=== PATIENT | female | born 1940 | race African-American/Black ===

== ENCOUNTER 2018-09-19 21:53 | Inpatient (IN) | payer MEDICARE, MEDICAID ==
[~2018-09-19] VITALS: Ht 152.4 cm; Wt 92.5 kg
[2018-09-19 23:34] LABS: BASOPHILS % 0.6 % (0.0-2.0); EOSINOPHILS % 3.3 % (0.0-5.0); HEMATOCRIT. 41.5 % (36.0-48.0); HEMOGLOBIN. 13.4 g/dL (12.0-16.0); MEAN CORPUSCULAR HEMOGLOBIN 25.6 pg (28.0-32.0); MEAN CORPUSCULAR VOLUME 79.2 fL (81.0-99.0); MEAN PLATELET VOLUME 9.1 fl (7.4-10.4); MONOCYTES % 7.1 % (2.0-8.0); PLATELET 285 x1000/uL (130-400); RED BLOOD CELL COUNT 5.24 mill/uL (4.2-5.4)
[2018-09-19 23:39] LABS: CHLORIDE 106 mEq/L (98-107)
[2018-09-20 00:05] LABS: PARTIAL THROMBOPLASTIN TIME 30.9 sec (23.4-31.0); PROTHROMBIN TIME 10.5 sec (9.6-11.0)
[2018-09-20] MEDS ORDERED: CLONIDINE 0.2MG TABLET PO ONE (00:15)
[2018-09-20] MEDS ORDERED: ASPIRIN 325MG EC TABLET PO ONE (02:30)
[2018-09-20] MEDS ORDERED: CLONIDINE 0.1MG TABLET PO ONE (02:30)
[2018-09-20] MEDS ORDERED: MAGNESIUM/ALUMINUM HYDROXIDE/SIMETHICONE 30ML UDC PO PRN (07:00)
[2018-09-20] MEDS ORDERED: DOCUSATE SODIUM 100MG CAPSULE PO PRN (07:00)
[2018-09-20] MEDS ORDERED: HYDROCODONE/ACETAMINOPHEN 10/325MG TABLET PO PRN (07:00)
[2018-09-20] MEDS ORDERED: GUAIFENESIN 200MG/10ML SUGAR FREE UDC PO PRN (07:00)
[2018-09-20] MEDS ORDERED: DIPHENHYDRAMINE 50MG/ML VIAL IV PRN (07:00)
[2018-09-20] MEDS ORDERED: ACETAMINOPHEN 325MG TABLET PO PRN (07:00)
[2018-09-20] MEDS ORDERED: ONDANSETRON HCL 4MG/2ML INJ IV PRN (07:00)
[2018-09-20] MEDS ORDERED: CLONIDINE 0.1MG TABLET PO PRN (07:00)
[2018-09-20] MEDS ORDERED: NA PHOS,M-B/NA PHOS,DI-BA ENEMA 118ML PR PRN (07:00)
[2018-09-20] MEDS ORDERED: IPRATROPIUM/ALBUTEROL 0.5-3(2.5)MG/3ML NEB INH PRN (07:00)
[2018-09-20] MEDS ORDERED: LORAZEPAM 2MG/ML CPJ IV PRN (07:00)
[2018-09-20 08:45] VITALS: BP 155/63
[2018-09-20 08:46] VITALS: BP 155/63
[2018-09-20] MEDS: ASPIRIN 81MG EC TABLET PO SCH (10:28)
[2018-09-20] MEDS: ENOXAPARIN 40MG/0.4ML SYR SUBCUT SCH (10:29)
[2018-09-20 12:00] VITALS: BP 155/70
[2018-09-20] MEDS: PANTOPRAZOLE SODIUM 40 MG/VIAL IV SCH (12:42)
[2018-09-20] MEDS: LISINOPRIL 10MG TABLET PO SCH (12:42)
[2018-09-20 16:00] VITALS: BP 124/53
[2018-09-20 17:24] LABS: CREATINE KINASE 157 IU/L (26-192)
[2018-09-20 17:25] LABS: CREATINE KINASE MB FRACTION 1.2 ng/mL (0.5-3.6)
[2018-09-20] MEDS: SODIUM CHLORIDE 0.9% INJ 3ML FLUSH IVF SCH ×2 (18:43→21:59)
[2018-09-20 20:00] VITALS: BP 147/62
[2018-09-21] VITALS: BP 123/51
[2018-09-21 04:00] VITALS: BP 127/56
[2018-09-21] MEDS: SODIUM CHLORIDE 0.9% INJ 3ML FLUSH IVF SCH (05:29)
[2018-09-21 06:33] LABS: BASOPHILS % 0.5 % (0.0-2.0); EOSINOPHILS % 4.9 % (0.0-5.0); HEMATOCRIT. 38.2 % (36.0-48.0); HEMOGLOBIN. 12.5 g/dL (12.0-16.0); LYMPHOCYTES % 30.1 % (20.0-50.0); MEAN CORPUSCULAR HEMOGLOBIN 25.8 pg (28.0-32.0); MEAN CORPUSCULAR VOLUME 78.8 fL (81.0-99.0); MEAN PLATELET VOLUME 9.2 fl (7.4-10.4); MONOCYTES % 8.5 % (2.0-8.0); PLATELET 253 x1000/uL (130-400); RED BLOOD CELL COUNT 4.85 mill/uL (4.2-5.4)
[2018-09-21 07:43] LABS: CHLORIDE 107 mEq/L (98-107)
[2018-09-21 08:00] VITALS: BP 136/68
[2018-09-21 08:05] LABS: LDL CHOLESTEROL 112 mg/dL (5-100)
[2018-09-21 08:06] LABS: CREATINE KINASE 127 IU/L (26-192); HDL CHOLESTEROL 40 mg/dL (40-59); T4 FREE 1.11 ng/dL (0.76-1.46)
[2018-09-21 08:11] LABS: CREATINE KINASE MB FRACTION 1.1 ng/mL (0.5-3.6)
[2018-09-21] MEDS: PANTOPRAZOLE SODIUM 40 MG/VIAL IV SCH (09:34)
[2018-09-21] MEDS: ASPIRIN 81MG EC TABLET PO SCH (09:34)
[2018-09-21] MEDS: ENOXAPARIN 40MG/0.4ML SYR SUBCUT SCH (09:34)
[2018-09-21] MEDS: LISINOPRIL 10MG TABLET PO SCH (09:34)
[2018-09-21 12:53] VITALS: BP 122/77
[2018-09-21] MEDS ORDERED: ENOXAPARIN 30MG/0.3ML SYR SUBCUT SCH (21:00)
== END 2018-09-21 13:30 | disposition home or self-care (01) | DRG 305 ==
LOC: ER 21:53 → 6WST 09-20 02:17 → ENRESERV 09-20 07:36
PROVIDERS: ADMIT Internal Medicine; ATTEND Internal Medicine
DX: I10 Essential (primary) hypertension (principal); R42 Dizziness and giddiness; F41.9 Anxiety disorder, unspecified; E05.90 Thyrotoxicosis, unspecified without thyrotoxic crisis or storm; E78.5 Hyperlipidemia, unspecified; K21.9 Gastro-esophageal reflux disease without esophagitis; Z88.8 Allergy status to other drugs, medicaments and biological substances; Z88.5 Allergy status to narcotic agent
CPT/HCPCS: 36415; 71045; 80061; 82550; 82553; 83036; 83880; 84439; 84443; 84484; 85379; 93005; 93306; 99285; C9113; J1650; J2060

== ENCOUNTER 2018-09-25 05:19 | Inpatient (IN) | payer MEDICARE, MEDICAID ==
[2018-09-25] VITALS (7 sets, daily range): BP systolic 108–179; BP diastolic 57–88
[~2018-09-25] VITALS: Ht 160 cm; Wt 92.5 kg
[2018-09-25 07:14] LABS: BASOPHILS % 0.3 % (0.0-2.0); CHLORIDE 105 mEq/L (98-107); EOSINOPHILS % 2.2 % (0.0-5.0); HEMATOCRIT. 42.9 % (36.0-48.0); HEMOGLOBIN. 13.6 g/dL (12.0-16.0); MEAN CORPUSCULAR HEMOGLOBIN 25.4 pg (28.0-32.0); MEAN CORPUSCULAR VOLUME 79.9 fL (81.0-99.0); MONOCYTES % 5.5 % (2.0-8.0); PLATELET 279 x1000/uL (130-400); RED BLOOD CELL COUNT 5.37 mill/uL (4.2-5.4); RED CELL DISTRIBUTION WIDTH 15.5 % (11.6-14.6)
[2018-09-25] MEDS ORDERED: NITROGLYCERIN 0.4MG TABLET SL SL ONE (07:45)
[2018-09-25] MEDS ORDERED: LORAZEPAM 2MG/ML CPJ IV PRN (09:00)
[2018-09-25] MEDS ORDERED: DOCUSATE SODIUM 100MG CAPSULE PO PRN (09:00)
[2018-09-25] MEDS ORDERED: MAGNESIUM/ALUMINUM HYDROXIDE/SIMETHICONE 30ML UDC PO PRN (09:00)
[2018-09-25] MEDS ORDERED: ACETAMINOPHEN 325MG TABLET PO PRN (09:00)
[2018-09-25] MEDS ORDERED: NA PHOS,M-B/NA PHOS,DI-BA ENEMA 118ML PR PRN (09:00)
[2018-09-25] MEDS ORDERED: DIPHENHYDRAMINE 50MG/ML VIAL IV PRN (09:00)
[2018-09-25] MEDS ORDERED: GUAIFENESIN 200MG/10ML SUGAR FREE UDC PO PRN (09:00)
[2018-09-25] MEDS ORDERED: IPRATROPIUM/ALBUTEROL 0.5-3(2.5)MG/3ML NEB INH PRN (09:00)
[2018-09-25] MEDS ORDERED: HYDROMORPHONE HCL/PF 2MG/ML CPJ IV PRN (09:00)
[2018-09-25] MEDS ORDERED: ONDANSETRON HCL 4MG/2ML INJ IV PRN (09:00)
[2018-09-25 09:15] LABS: CHLORIDE 107 mEq/L (98-107)
[2018-09-25] MEDS: ASPIRIN 81MG EC TABLET PO SCH (10:45)
[2018-09-25] MEDS ORDERED: LEVO100T9 PO (14:21)
[2018-09-25] MEDS ORDERED: DOCU-138 PO (14:24)
[2018-09-25] MEDS ORDERED: LISI40TA4 PO (14:24)
[2018-09-25] MEDS ORDERED: AMLO10TA4 PO (14:24)
[2018-09-25] MEDS: CLONIDINE 0.1MG TABLET PO PRN (15:24)
[2018-09-26] VITALS (9 sets, daily range): BP systolic 144–173; BP diastolic 60–78
[2018-09-26 06:14] LABS: BASOPHILS % 0.5 % (0.0-2.0); EOSINOPHILS % 5.1 % (0.0-5.0); HEMATOCRIT. 37.1 % (36.0-48.0); HEMOGLOBIN. 11.9 g/dL (12.0-16.0); LYMPHOCYTES % 31.6 % (20.0-50.0); MEAN CORPUSCULAR HEMOGLOBIN 25.5 pg (28.0-32.0); MEAN CORPUSCULAR VOLUME 79.4 fL (81.0-99.0); MEAN PLATELET VOLUME 9.2 fl (7.4-10.4); MONOCYTES % 8.1 % (2.0-8.0); NEUTROPHILS % 54.7 % (40.0-76.0); PLATELET 262 x1000/uL (130-400); RED BLOOD CELL COUNT 4.67 mill/uL (4.2-5.4)
[2018-09-26 06:16] LABS: CHLORIDE 106 mEq/L (98-107)
[2018-09-26 06:36] LABS: HDL CHOLESTEROL 40 mg/dL (40-59)
[2018-09-26 06:37] LABS: LDL CHOLESTEROL 108 mg/dL (5-100)
[2018-09-26] MEDS: ASPIRIN 81MG EC TABLET PO SCH (08:48)
[2018-09-26] MEDS: LISINOPRIL 40MG TABLET PO SCH (08:48)
[2018-09-26] MEDS: AMLODIPINE 10MG TABLET PO SCH (08:48)
[2018-09-26] MEDS: LEVOTHYROXINE SODIUM 100MCG TABLET PO SCH (08:48)
[2018-09-26] MEDS: ENOXAPARIN 30MG/0.3ML SYR SUBCUT SCH ×2 (08:49→21:30)
[2018-09-26] MEDS: CLONIDINE 0.1MG TABLET PO PRN (11:39)
[2018-09-26] MEDS: PANTOPRAZOLE 40MG DR TABLET PO SCH (17:36)
[2018-09-26] MEDS ORDERED: CLONIDINE 0.2MG TABLET PO PRN (21:00)
[2018-09-26] MEDS: METOPROLOL TARTRATE 25MG TABLET PO SCH (21:29)
[2018-09-27] VITALS: BP 143/63
[2018-09-27 04:00] VITALS: BP 134/70
[2018-09-27 08:00] VITALS: BP 131/80
[2018-09-27] MEDS: LEVOTHYROXINE SODIUM 100MCG TABLET PO SCH (08:35)
[2018-09-27] MEDS: LISINOPRIL 40MG TABLET PO SCH (08:35)
[2018-09-27] MEDS: PANTOPRAZOLE 40MG DR TABLET PO SCH (08:35)
[2018-09-27] MEDS: METOPROLOL TARTRATE 25MG TABLET PO SCH (08:35)
[2018-09-27] MEDS: AMLODIPINE 10MG TABLET PO SCH (08:36)
[2018-09-27] MEDS: ASPIRIN 81MG EC TABLET PO SCH (08:36)
[2018-09-27] MEDS: ENOXAPARIN 30MG/0.3ML SYR SUBCUT SCH (08:36)
== END 2018-09-27 12:38 | disposition home or self-care (01) | DRG 310 ==
LOC: ER 05:19 → 7WST 08:06 → EDBEDREQTM 08:08 → EDBEDREQ 08:08 → ENRESERV 08:23 → 7WST 09:27
PROVIDERS: ADMIT Internal Medicine; ATTEND Internal Medicine
DX: R00.2 Palpitations (principal); E03.9 Hypothyroidism, unspecified; E78.00 Pure hypercholesterolemia, unspecified; E78.5 Hyperlipidemia, unspecified; I10 Essential (primary) hypertension; F41.9 Anxiety disorder, unspecified; I25.10 Atherosclerotic heart disease of native coronary artery without angina pectoris; Z79.890 Hormone replacement therapy; Z88.5 Allergy status to narcotic agent; Z88.9 Allergy status to unspecified drugs, medicaments and biological substances; D64.9 Anemia, unspecified
CPT/HCPCS: 36415; 71045; 80048; 80061; 83880; 84439; 84443; 84484; 93005; 93970; 99285; J1650; J2060; J2405

== ENCOUNTER 2019-05-29 14:33 | Emergency (ER) | payer MEDICARE, MEDICAID ==
[~2019-05-29] VITALS: Ht 160 cm; Wt 101.0 kg
[~2019-05-29 14:33] MED LIST: AMLO10TA4 PO; DOCU-138 PO; LEVO100T9 PO; LISI40TA4 PO
[2019-05-29] MEDS ORDERED: ONDANSETRON HCL 4MG/2ML INJ IV STA (18:26)
[2019-05-29] MEDS ORDERED: KETOROLAC 30MG/ML VIAL IV STA (18:26)
[2019-05-29] MEDS ORDERED: SODIUM CHLORIDE 0.9% 1,000 ML IV ONE (18:26)
[2019-05-29 19:20] LABS: CLARITY URINE CLEAR (CLEAR); COLOR URINE YELLOW (YELLOW); KETONES URINE NEGATIVE (NEGATIVE); LEUKOCYTE ESTERASE URINE 2+ (NEGATIVE); NITRITE URINE NEGATIVE (NEGATIVE); OCCULT BLOOD URINE NEGATIVE (NEGATIVE); PH URINE 5.5 (4.5-8.0); PROTEIN URINE NEGATIVE (NEGATIVE); SPECIFIC GRAVITY URINE 1.006 (1.005-1.030); UROBILINOGEN URINE 0.2 E.U./dL (0.2-1.0)
[2019-05-29 19:57] LABS: BASOPHILS % 0.5 % (0.0-2.0); EOSINOPHILS % 7.5 % (0.0-5.0); HEMATOCRIT. 42.2 % (36.0-48.0); HEMOGLOBIN. 13.6 g/dL (12.0-16.0); LYMPHOCYTES % 34.1 % (20.0-50.0); MEAN CORPUSCULAR HEMOGLOBIN 25.4 pg (28.0-32.0); MEAN CORPUSCULAR VOLUME 78.9 fL (81.0-99.0); MEAN PLATELET VOLUME 8.9 fl (7.4-10.4); MONOCYTES % 6.7 % (2.0-8.0); NEUTROPHILS % 51.2 % (40.0-76.0); PLATELET 238 x1000/uL (130-400); RED BLOOD CELL COUNT 5.34 mill/uL (4.2-5.4); RED CELL DISTRIBUTION WIDTH 15.7 % (11.6-14.6)
[2019-05-29 20:00] LABS: CHLORIDE 103 mEq/L (98-107)
[2019-05-29 20:01] LABS: PROTHROMBIN TIME 10.7 sec (9.6-11.0)
[2019-05-29 20:10] LABS: T4 FREE 1.29 ng/dL (0.76-1.46)
[2019-05-29] MEDS ORDERED: MAGNESIUM/ALUMINUM HYDROXIDE/SIMETHICONE 30ML UDC PO STA (20:52)
[2019-05-29] MEDS ORDERED: VISCOUS LIDOCAINE 2% 15 ML UDC PO STA (20:52)
[2019-05-29 23:23] VITALS: BP 160/69
== END 2019-05-30 00:30 | disposition home or self-care (01) ==
LOC: ER 14:33
DX: R10.9 Unspecified abdominal pain (principal); N39.0 Urinary tract infection, site not specified; I10 Essential (primary) hypertension; E05.90 Thyrotoxicosis, unspecified without thyrotoxic crisis or storm; Z88.6 Allergy status to analgesic agent; Z88.8 Allergy status to other drugs, medicaments and biological substances
CPT/HCPCS: 36415; 74176; 80053; 81003; 83690; 84439; 84443; 84484; 85025; 85610; 93005; 96361; 96374; 96375; 99284; J1885; J2405; J7030

== ENCOUNTER → 2019-11-06 | Outpatient (CLI) | payer MEDICARE, MEDICAID ==
[~2019-11-06] MED LIST changes: +BARIUM SULFATE 450ML ORAL SUSP ONE; +IOHEXOL-300 100 ML BOTTLE ONE
== END | disposition home or self-care (01) ==
LOC: CT 07:18
PROVIDERS: ATTEND Internal Medicine Gastroenterology
DX: K57.30 Diverticulosis of large intestine without perforation or abscess without bleeding (principal); R10.9 Unspecified abdominal pain
CPT/HCPCS: 74177; Q9967

== ENCOUNTER 2019-12-06 12:12 | Emergency (ER) | payer MEDICARE, MEDICAID ==
[~2019-12-06] VITALS: Ht 160 cm; Wt 68.0 kg
[~2019-12-06 12:12] MED LIST changes: -BARIUM SULFATE 450ML ORAL SUSP ONE; -IOHEXOL-300 100 ML BOTTLE ONE
[2019-12-06 14:07] LABS: BASOPHILS % 0.7 % (0.0-2.0); EOSINOPHILS % 2.5 % (0.0-5.0); HEMOGLOBIN. 13.1 g/dL (12.0-16.0); LYMPHOCYTES % 18.3 % (20.0-50.0); MEAN CORPUSCULAR HEMOGLOBIN 26.1 pg (28.0-32.0); MEAN CORPUSCULAR VOLUME 79.7 fL (81.0-99.0); MEAN PLATELET VOLUME 9.4 fl (7.4-10.4); MONOCYTES % 7.2 % (2.0-8.0); NEUTROPHILS % 71.3 % (40.0-76.0); PLATELET 239 x1000/uL (130-400); RED BLOOD CELL COUNT 5.01 mill/uL (4.2-5.4); RED CELL DISTRIBUTION WIDTH 15.7 % (11.6-14.6)
[2019-12-06 14:13] LABS: CHLORIDE 107 mEq/L (98-107)
[2019-12-06 14:22] LABS: T4 FREE 1.36 ng/dL (0.76-1.46)
[2019-12-06 14:55] VITALS: BP 162/57
== END 2019-12-06 15:00 | disposition home or self-care (01) ==
LOC: ER 12:12
DX: R00.2 Palpitations (principal); I10 Essential (primary) hypertension; E05.90 Thyrotoxicosis, unspecified without thyrotoxic crisis or storm; Z88.5 Allergy status to narcotic agent; Z79.899 Other long term (current) drug therapy; Z88.8 Allergy status to other drugs, medicaments and biological substances
CPT/HCPCS: 36415; 71045; 80053; 83880; 84439; 84443; 84484; 85025; 93005; 99285

== ENCOUNTER 2020-02-09 16:07 | Emergency (ER) | payer MEDICARE, MEDICAID ==
[~2020-02-09] VITALS: Ht 160 cm; Wt 92.0 kg
[2020-02-09 17:50] LABS: CLARITY URINE CLOUDY (CLEAR); COLOR URINE YELLOW (YELLOW); KETONES URINE NEGATIVE (NEGATIVE); LEUKOCYTE ESTERASE URINE 3+ (NEGATIVE); NITRITE URINE NEGATIVE (NEGATIVE); OCCULT BLOOD URINE NEGATIVE (NEGATIVE); PH URINE 5.5 (4.5-8.0); PROTEIN URINE NEGATIVE (NEGATIVE); SPECIFIC GRAVITY URINE 1.006 (1.005-1.030); UROBILINOGEN URINE 0.2 E.U./dL (0.2-1.0)
[2020-02-09 19:13] VITALS: BP 157/72
== END 2020-02-09 19:14 | disposition home or self-care (01) ==
LOC: ER 16:07
DX: N39.0 Urinary tract infection, site not specified (principal); M54.32 Sciatica, left side; F41.9 Anxiety disorder, unspecified; I10 Essential (primary) hypertension; E05.90 Thyrotoxicosis, unspecified without thyrotoxic crisis or storm; Z88.5 Allergy status to narcotic agent
CPT/HCPCS: 81003; 87077; 87186; 99283

== ENCOUNTER 2020-07-07 00:30 | Emergency (ER) | payer MEDICARE, MEDICAID ==
[~2020-07-07] VITALS: Ht 160 cm; Wt 91.0 kg
[2020-07-07] MEDS ORDERED: ASPIRIN 81MG TABLET PO ONE (01:00)
[2020-07-07] MEDS ORDERED: NITROGLYCERIN 0.4MG TABLET SL SL PRN (01:00)
[2020-07-07 02:01] LABS: BASOPHILS % 0.3 % (0.0-2.0); EOSINOPHILS % 3.8 % (0.0-5.0); HEMATOCRIT. 40.2 % (36.0-48.0); HEMOGLOBIN. 12.9 g/dL (12.0-16.0); MEAN CORPUSCULAR HEMOGLOBIN 25.6 pg (28.0-32.0); MEAN CORPUSCULAR VOLUME 79.8 fL (81.0-99.0); MEAN PLATELET VOLUME 9.3 fl (7.4-10.4); MONOCYTES % 6.3 % (2.0-8.0); NEUTROPHILS % 75.6 % (40.0-76.0); PLATELET 255 x1000/uL (130-400); RED BLOOD CELL COUNT 5.04 mill/uL (4.2-5.4); RED CELL DISTRIBUTION WIDTH 16.1 % (11.6-14.6)
[2020-07-07 02:09] LABS: CHLORIDE 101 mEq/L (98-107)
[2020-07-07 03:00] VITALS: BP 133/60
== END 2020-07-07 03:27 | disposition home or self-care (01) ==
LOC: ER 00:59 → CANBEDREQ 11:19
DX: R07.89 Other chest pain (principal); F41.9 Anxiety disorder, unspecified; I10 Essential (primary) hypertension; E05.90 Thyrotoxicosis, unspecified without thyrotoxic crisis or storm; Z79.899 Other long term (current) drug therapy; Z88.5 Allergy status to narcotic agent
CPT/HCPCS: 36415; 71045; 80053; 83880; 84484; 85025; 93005; 99285

== ENCOUNTER 2020-07-27 17:09 | Emergency (ER) | payer MEDICARE, MEDICAID ==
[~2020-07-27] VITALS: Ht 157.5 cm; Wt 90.0 kg
[2020-07-27 17:11] VITALS: BP 174/65
[2020-07-27] MEDS ORDERED: ACETAMINOPHEN 325MG TABLET PO STA (17:27)
[2020-07-27 18:06] LABS: BASOPHILS % 0.5 % (0.0-2.0); HEMATOCRIT. 40.1 % (36.0-48.0); HEMOGLOBIN. 12.8 g/dL (12.0-16.0); LYMPHOCYTES % 24.9 % (20.0-50.0); MEAN CORPUSCULAR HEMOGLOBIN 25.4 pg (28.0-32.0); MEAN CORPUSCULAR VOLUME 79.5 fL (81.0-99.0); MEAN PLATELET VOLUME 8.9 fl (7.4-10.4); MONOCYTES % 7.4 % (2.0-8.0); NEUTROPHILS % 59.2 % (40.0-76.0); PLATELET 260 x1000/uL (130-400); RED BLOOD CELL COUNT 5.05 mill/uL (4.2-5.4); RED CELL DISTRIBUTION WIDTH 16.6 % (11.6-14.6)
[2020-07-27 18:13] LABS: CHLORIDE 106 mEq/L (98-107)
[2020-07-27 18:15] LABS: PROTHROMBIN TIME 10.9 sec (9.6-11.0)
[2020-07-27 19:30] LABS: CLARITY URINE CLOUDY (CLEAR); COLOR URINE YELLOW (YELLOW); KETONES URINE NEGATIVE (NEGATIVE); LEUKOCYTE ESTERASE URINE 2+ (NEGATIVE); NITRITE URINE NEGATIVE (NEGATIVE); OCCULT BLOOD URINE NEGATIVE (NEGATIVE); PROTEIN URINE NEGATIVE (NEGATIVE); SPECIFIC GRAVITY URINE 1.004 (1.005-1.030); UROBILINOGEN URINE 0.2 E.U./dL (0.2-1.0)
== END 2020-07-27 19:45 | disposition home or self-care (01) ==
LOC: ER 17:09
DX: I10 Essential (primary) hypertension (principal); R51.9 Headache, unspecified; E05.90 Thyrotoxicosis, unspecified without thyrotoxic crisis or storm; Z88.5 Allergy status to narcotic agent; Z88.8 Allergy status to other drugs, medicaments and biological substances
CPT/HCPCS: 36415; 70450; 71045; 80053; 81003; 83880; 84484; 85025; 85610; 93005; 99285; C1893

== ENCOUNTER 2021-06-27 12:22 | Emergency (ER) | payer MEDICARE, MEDICAID ==
[~2021-06-27] VITALS: Ht 160 cm; Wt 82.0 kg
[~2021-06-27 12:22] MED LIST changes: +LISI40TA13 PO; -LISI40TA4 PO
[2021-06-27 14:08] LABS: BASOPHILS % 1.1 % (0.0-2.0); HEMATOCRIT. 39.8 % (36.0-48.0); HEMOGLOBIN. 13.1 g/dL (12.0-16.0); LYMPHOCYTES % 29.5 % (20.0-50.0); MEAN CORPUSCULAR HEMOGLOBIN 25.9 pg (28.0-32.0); MEAN PLATELET VOLUME 9.6 fl (7.4-10.4); MONOCYTES % 6.9 % (2.0-8.0); NEUTROPHILS % 58.5 % (40.0-76.0); PLATELET 260 x1000/uL (130-400); RED BLOOD CELL COUNT 5.04 mill/uL (4.2-5.4); RED CELL DISTRIBUTION WIDTH 15.3 % (11.6-14.6)
[2021-06-27 14:15] LABS: CHLORIDE 103 mEq/L (98-107); CLARITY URINE CLEAR (CLEAR); COLOR URINE YELLOW (YELLOW); KETONES URINE NEGATIVE (NEGATIVE); LEUKOCYTE ESTERASE URINE 1+ (NEGATIVE); NITRITE URINE NEGATIVE (NEGATIVE); OCCULT BLOOD URINE NEGATIVE (NEGATIVE); PH URINE 5.5 (4.5-8.0); PROTEIN URINE NEGATIVE (NEGATIVE); SPECIFIC GRAVITY URINE 1.009 (1.005-1.030); UROBILINOGEN URINE 0.2 E.U./dL (0.2-1.0)
[2021-06-27 14:21] LABS: PHOSPHORUS 2.6 mg/dL (2.5-4.9)
[2021-06-27 14:24] LABS: T4 FREE 1.28 ng/dL (0.76-1.46)
[2021-06-27 15:49] VITALS: BP 161/62
== END 2021-06-27 15:53 | disposition home or self-care (01) ==
LOC: ER 12:34 → CANBEDREQ 22:15
DX: R00.2 Palpitations (principal); I10 Essential (primary) hypertension; Z88.5 Allergy status to narcotic agent
CPT/HCPCS: 36415; 71045; 80053; 81003; 83735; 83880; 84100; 84439; 84443; 84484; 85025; 93005; 99285

== ENCOUNTER 2021-09-14 16:59 | Emergency (ER) | payer MEDICARE, MEDICAID ==
[~2021-09-14] VITALS: Ht 165.1 cm; Wt 78.0 kg
[2021-09-14 17:55] LABS: BASOPHILS % 0.4 % (0.0-2.0); EOSINOPHILS % 4.1 % (0.0-5.0); HEMATOCRIT. 38.4 % (36.0-48.0); HEMOGLOBIN. 12.7 g/dL (12.0-16.0); MEAN CORPUSCULAR HEMOGLOBIN 26.1 pg (28.0-32.0); MEAN CORPUSCULAR VOLUME 79.1 fL (81.0-99.0); MEAN PLATELET VOLUME 8.6 fl (7.4-10.4); MONOCYTES % 9.4 % (2.0-8.0); NEUTROPHILS % 58.1 % (40.0-76.0); PLATELET 236 x1000/uL (130-400); RED BLOOD CELL COUNT 4.85 mill/uL (4.2-5.4); RED CELL DISTRIBUTION WIDTH 15.5 % (11.6-14.6)
[2021-09-14 18:02] LABS: CHLORIDE 102 mEq/L (98-107)
[2021-09-14] MEDS ORDERED: IMOD MT (20:58)
[2021-09-14] MEDS ORDERED: PROT40 PO (20:59)
[2021-09-14 21:10] VITALS: BP 130/65
== END 2021-09-14 21:09 | disposition home or self-care (01) ==
LOC: ER 16:59
DX: R19.7 Diarrhea, unspecified (principal); I10 Essential (primary) hypertension; Z88.8 Allergy status to other drugs, medicaments and biological substances; Z88.5 Allergy status to narcotic agent; Z86.39 Personal history of other endocrine, nutritional and metabolic disease
CPT/HCPCS: 36415; 80048; 80076; 85025; 99284

== ENCOUNTER 2021-12-27 22:43 | Emergency (ER) | payer MEDICARE, MEDICAID ==
[~2021-12-27] VITALS: Ht 162.6 cm; Wt 83.0 kg
[~2021-12-27 22:43] MED LIST changes: +IMOD MT; +PROT40 PO
[2021-12-28 01:51] LABS: BASOPHILS % 0.7 % (0.0-2.0); EOSINOPHILS % 9.2 % (0.0-5.0); HEMATOCRIT. 40.4 % (36.0-48.0); LYMPHOCYTES % 30.7 % (20.0-50.0); MEAN CORPUSCULAR HEMOGLOBIN 25.6 pg (28.0-32.0); MEAN CORPUSCULAR VOLUME 79.3 fL (81.0-99.0); MEAN PLATELET VOLUME 9.1 fl (7.4-10.4); MONOCYTES % 6.7 % (2.0-8.0); NEUTROPHILS % 52.7 % (40.0-76.0); PLATELET 257 x1000/uL (130-400); RED BLOOD CELL COUNT 5.09 mill/uL (4.2-5.4); RED CELL DISTRIBUTION WIDTH 15.6 % (11.6-14.6)
[2021-12-28 02:09] LABS: CHLORIDE 105 mEq/L (98-107)
[2021-12-28 04:02] VITALS: BP 118/78
== END 2021-12-28 04:25 | disposition home or self-care (01) ==
LOC: ER 22:43
DX: R42 Dizziness and giddiness (principal); I10 Essential (primary) hypertension; E05.90 Thyrotoxicosis, unspecified without thyrotoxic crisis or storm; Z79.899 Other long term (current) drug therapy
CPT/HCPCS: 36415; 80053; 85025; 93005; 99284